=== PATIENT | male | born 1940 | race Caucasian/White ===

== ENCOUNTER 2016-09-17 15:10 | Emergency (ER) | payer OTHER, BC ==
[2016-09-17] MEDS ORDERED: Lidocaine 1% 10 MG/ML - 20 ML VIAL SUBCUT ONE (15:23)
[2016-09-17] MEDS ORDERED: DIPH,PERTUSS,TET(ADACEL) VAC/PF 0.5 ML (Tdap) IM ONE (15:23)
--- NOTE | 2016-09-17 16:02 | PDOC ---
Upper Ext Injury HPI - General Chief Complaint: Laceration / Wound Stated Complaint: RIGHT HAND LACERATION FROM MOVING REFRIG Date Seen by Provider: 09/17/16 Time Seen by Provider: 15:58 - History of Present Illness Initial Comments: Patient's very nice 76-year-old who presents to the emergency department after having a refrigerator fall against his hand while they were transporting it downstairs and cause 2 lacerations on the dorsum of his right hand. These were both clean and no substantial crush injury associated with them. Have you received a tetanus shot in the past 10 years?: No - Patient Home Medications Home Medications: Home Medications Pravastatin Sodium 50 mg PO DAILY 09/17/16 Sitagliptin Phosphate [Januvia] 50 mg PO DAILY 09/17/16 metFORMIN Tab [Glucophage Tab] 850 mg PO BID 09/17/16 - Patient Allergies Allergies/Adverse Reactions: Allergies Allergy/AdvReac Type Severity Reaction Status Date / Time No Known Allergies Allergy Verified 09/17/16 15:21 Past Medical History - heen HEENT History: Denies History Cardiovascular History: Denies History Respiratory History: Denies History ROS - Limitations ROS Limitations: No Limitations Constitution: REPORTS: Denies Symptoms Cardiovascular: REPORTS: Denies Cardiac Symptoms Respiratory: REPORTS: Denies Resp Symptoms Upper Ext Injury Exam - General Appearance General Appearance: POSITIVE: Alert, Cooperative, No Acute Distress - Extremities Upper Extremity: POSITIVE: Other (Dorsum of the right hand has 2 lacerations 1 is approximately 3 and half centimeters one is 2-1/2 cm both on the lateral aspect of the dorsal part of the hand between the thumb and forefinger.) Procedures - Laceration/Wound Repair Did patient have a laceration repair: Yes Site of Laceration/Wound: hand Wound Length (cm): 6 Wound's Depth, Shape: Into subcutaneous tissue Distal CMS: Yes Skin Prep: Betadine Prep Local Anesthesia Used - Indicate Amt Used in Comment: Lidocaine 1%: Yes Wound Explored: No foreign body removed Wound Repaired With: Sutures single layer Suture Size/Type: 4:0 Number of Sutures: 11 Upper Ext Injury Progress - Patient's Progress MDM / ED Course: Patient has good movement of his hand at all think there is any substantial crush injury or bony problems. Have told him that if he does end up with any ongoing symptoms he needs to be evaluated as an outpatient though. He did have these 2 lacerations that were sutured they seem to be looking pretty good. Distal neurovascular function intact. We'll go ahead and get him discharged with follow-up if needed. Sutures out in 7-10 days. Patient Care Time - Estimated PCT Patient Care Time (In Minutes): 35 Vital Signs - VS Reviewed Vital Signs Reviewed: Yes (vitals are benign) Discharge Clinical Impression: Laceration - injury Discharge Disposition: Discharged to Home Condition: Stable Patient Instructions Given at Discharge: Laceration (ED) Additional Instructions: Have sutures removed in 7-10 days [id number] analgesics for pain Keep the wound clean and dry Return with any concerns or other issues Follow Up With: NONE,NONE [Primary Care Provider] -
[2016-09-17 17:22] VITALS: RESP 17; TEMP 96.8
== END 2016-09-17 16:07 | disposition home or self-care (01) ==
LOC: ER 15:10
DX: S61.411A Laceration without foreign body of right hand, initial encounter (principal); W20.8XXA Other cause of strike by thrown, projected or falling object, initial encounter
CPT/HCPCS: 12002; 90471; 90715; 99282